=== PATIENT | female | born 1955 | race Caucasian/White ===

== ENCOUNTER 2018-04-27 13:56 | Emergency (ER) | payer OTHER ==
[2018-04-27] MEDS ORDERED: SODIUM CHLORIDE 1,000 ML IV STA ×2 (13:58)
[2018-04-27 14:04] VITALS: BP 130/83; TEMP 98.5; BMI 38.7
--- NOTE | 2018-04-27 14:06 | ED.PDOC ---
General ED Provider: Dr. BENJAMIN BROWN Chief Complaint: Stroke Stated Complaint: Abnormal speech. 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 Patient's daughter states she was driving and her mother who had been doing well since discharge from [facility] and today was acting and conversing normally suddently developed changes in her mental status, started to verbalize and speak abnormally with inappropriate response and interactions.. Family was Concerned over possible recurrent CVA. Brought her here for EMERG CARE. Patient not following commands and answers questins inappropriately. Did not have previous studies to review. New CT interpreteted at acute CVA Rt temporal lobe with hemorrhagic featured Time Seen by Physician: 13:58 Mode of Arrival: Walk-In Information Source: Family, EMT Exam Limitations: Clinical condition Nursing and Triage Documentation Reviewed and Agree: Yes Does patient meet sepsis criteria?: No System Inflammatory Response Syndrome: Not Applicable Sepsis Protocol: For patient's 13 years and over: Temp is 96.8 and below OR 101 and greater Pulse >90 BPM Resp >20/minute Acutely Altered Mental Status Are patient's symptoms suggestive of a new infection, such as: -Pneumonia -Skin, Soft Tissue -Endocarditis -UTI -Bone, Joint Infection -Implantable Device -Acute Abdominal Infection -Wound Infection -Meningitis -Blood Stream Catheter Infection -Unknown Neurological Complaint Exam - Altered Mental Status Complaint/Exam Current Mental Status: Confusion Onset: Sudden Symptoms Are: Still present Timing: Constant Episodes Lasting: Minutes Initial Severity: Severe Current Severity: Moderate Eye Deviation Present: No Character: Reports: Confusion, Responsiveness, Lethargy Aggravating: Reports: None Alleviating: Reports: None Associated Signs and Symptoms: Reports: Weakness Related History: Reports: Similar episode Cardiac Risk Factors: Reports: None CVA Risk Factors: Reports: Hypertension (CVA) Related Surgical History: Reports: None Carotid Bruit Present: No Nystagmus Present: No Gag Reflex Present: Yes Meningeal Signs Positive: No Focal Weakness: Present: RUE Focal Sensory Loss: Present: None Gait: Unable [id number]: Abnormal right Babinski Sign: Negative Right, Negative Left Heel to Toe Normal: No (not following commands/instructions) Thrombolytics Considered: No (Recent hemorrhagic infarct) Differential Diagnoses: Intracranial Bleed, Metabolic Disorder, Seizure, CVA Review of Systems - Review Of Systems Constitutional: Reports: No symptoms Eyes: Reports: No symptoms Ears, Nose, Mouth, Throat: Reports: No symptoms Respiratory: Reports: No symptoms Cardiac: Reports: No symptoms GI: Reports: No symptoms : Reports: No symptoms Musculoskeletal: Reports: No symptoms Skin: Reports: No symptoms Neurological: Reports: Cognitive dysfunction, Unable to move upper ext Endocrine: Reports: No symptoms Hematologic/Lymphatic: Reports: No symptoms All Other Systems: Reviewed and Negative Past Medical History - Past Medical History Previously Healthy: Yes Endocrine: Reports: None Cardiovascular: Reports: Hypertension Respiratory: Reports: None Hematological: Reports: None Gastrointestinal: Reports: None Genitourinary: Reports: UTI Neuro/Psych: Reports: CVA, Seizure Musculoskeletal: Reports: Arthritis (RA) Cancer: Reports: None - Surgical History General Surgical History: Reports: Unknown - Family History Family History: Reports: Unknown - Social History Lives: With family - Immunizations Influenza Vaccine within 12 Months: Yes Physical Exam - Physical Exam Appearance: Well-appearing, Ill-appearing, Obese Ill-appearing: Severe Pain Distress: None Eyes: TANESHA, EOMI, Conjunctiva clear, Conjunctiva inflammed ENT: Ears normal, Nose normal, Oropharynx normal Neck: Supple Respiratory: Airway patent, Breath sounds clear, Breath sounds equal Cardiovascular: RRR, Pulses normal, No rub GI/: Soft, Nontender, No masses, Bowel sounds normal, No Organomegaly Musculoskeletal: Normal strength, ROM intact, No edema Skin: Warm, Dry Neurological: Sensation intact, Motor intact, Cranial nerves intact, Disoriented Psychiatric: Anxious (Flat affect/inappropriate behavior and movement of her RUE / will not follow commands) Interpretation - Radiology Interpretation Radiology Interpretation By: Radiologist Radiology Results: Positive Exam Interpreted: CT Scan Xray Comments: poss rt temporal infarct and hemorrhage Re-Evaluation - Re-Evaluation Time of Re-Evaluation: 17:00 (preparing for discharge and transfer to [facility]) Status: Improved Vital Signs Stable: Yes Lungs: Clear Skin: Warm and Dry Neuro: Alert and Oriented X3 CV: RRR Critical Care Note - Critical Care Note Total Time (mins): 120 Course - Course Hematology/Chemistry: 04/27/18 14:20 04/27/18 14:20 Orders, Labs, Meds: Lab Review 04/27/18 04/27/18 04/27/18 14:20 14:20 14:20 WBC 5.84 RBC 3.50 L Hgb 10.9 L Hct 33.0 L MCV 94.3 MCH 31.1 H MCHC 33.0 RDW Coeff of Raman 14.6 Plt Count 181 Immature Gran % (Auto) 1.0 Neut % (Auto) 59.1 Lymph % (Auto) 27.2 [place] % (Auto) 8.6 Eos % (Auto) 3.1 Baso % (Auto) 1.0 Immature Gran # (Auto) 0.1 Neut # (Auto) 3.5 Lymph # (Auto) 1.6 [place] # (Auto) 0.5 Eos # (Auto) 0.2 Baso # (Auto) 0.1 PT 10.1 INR 1.01 APTT 25.2 Sodium 139 Potassium 3.9 Chloride 103 Carbon Dioxide 25 Anion Gap 14.9 BUN 8 Creatinine 0.64 Estimated GFR (MDRD) 93.00 BUN/Creatinine Ratio 12.50 Glucose 95 Calcium 8.6 Total Bilirubin 0.7 AST 20 ALT 26 Alkaline Phosphatase 83 Total Protein 6.2 Albumin 2.9 L Globulin 3.3 Albumin/Globulin Ratio 0.88 Urine Color Urine Clarity Urine pH Ur Specific [place] Urine Protein Urine Glucose (UA) Urine Ketones Urine Blood Urine Nitrite Urine Bilirubin Urine Urobilinogen Ur Leukocyte Esterase Urine Microscopic WBC Ur Squamous Epith Cells Urine Bacteria 04/27/18 14:53 WBC RBC Hgb Hct MCV MCH MCHC RDW Coeff of Raman Plt Count Immature Gran % (Auto) Neut % (Auto) Lymph % (Auto) [place] % (Auto) Eos % (Auto) Baso % (Auto) Immature Gran # (Auto) Neut # (Auto) Lymph # (Auto) [place] # (Auto) Eos # (Auto) Baso # (Auto) PT INR APTT Sodium Potassium Chloride Carbon Dioxide Anion Gap BUN Creatinine Estimated GFR (MDRD) BUN/Creatinine Ratio Glucose Calcium Total Bilirubin AST ALT Alkaline Phosphatase Total Protein Albumin Globulin Albumin/Globulin Ratio Urine Color Yellow Urine Clarity Clear Urine pH 7.0 Ur Specific [place] 1.010 Urine Protein Negative Urine Glucose (UA) Negative Urine Ketones Negative Urine Blood Negative Urine Nitrite Positive Urine Bilirubin Negative Urine Urobilinogen 0.2 Ur Leukocyte Esterase 3+ Urine Microscopic WBC 30-50 Ur Squamous Epith Cells 5-10 Urine Bacteria 3+ Orders Category Date Time Status EKG-(ED ONLY) Stat CARDIO 04/27/18 13:58 Completed ED ACCUCHECK ASSESSMENT .ONCE EMERGENCY 04/27/18 13:58 Active ED APPLY O2 .ONCE EMERGENCY 04/27/18 13:58 Active ED IV/MEDIPORT/POWERPORT .ONCE EMERGENCY 04/27/18 13:58 Active Restraints [ED RESTRAINTS] .ONCE EMERGENCY 04/27/18 17:10 Active CBC W/ AUTO DIFF Stat LAB 04/27/18 14:20 Completed COMPREHENSIVE METABOLIC PANEL Stat LAB 04/27/18 14:20 Completed PARTIAL THROMBOPLASTIN TIME Stat LAB 04/27/18 14:20 Completed PT WITH INR Stat LAB 04/27/18 14:20 Completed UA [URINALYSIS C & S IF INDICATED] Stat LAB 04/27/18 14:53 Completed URINE CULTURE Stat LAB 04/27/18 14:53 Completed 0.9 % Sodium Chloride [Saline Flush] MEDS 04/27/18 13:58 Discontinued 1 syr IVF PRN PRN Ceftriaxone Sodium [Rocephin] MEDS 04/27/18 16:16 Discontinued 1 gm IM ONCE STA Divalproex Sodium [Depakote] MEDS 04/27/18 15:21 Discontinued 500 mg .ROUTE .STK-MED ONE Fosphenytoin Sodium [Cerebyx] MEDS 04/27/18 15:44 Discontinued 1,000 mg .ROUTE .STK-MED ONE Fosphenytoin Sodium [Cerebyx] 1,000 mg MEDS 04/27/18 15:42 Discontinued 0.9 % Sodium Chloride [Sodium Chloride] 100 ml IV ONCE Fosphenytoin Sodium [Cerebyx] 1,000 mg MEDS 04/27/18 15:49 Discontinued 0.9 % Sodium Chloride [Sodium Chloride] 100 ml IV ONCE Levetiracetam Inj [Keppra] 1,000 mg MEDS 04/27/18 14:59 Discontinued 0.9 % Sodium Chloride [Sodium Chloride] 100 ml IV ONCE Lidocaine HCl/Pf [Lidocaine HCl 1% Sdv] MEDS 04/27/18 16:16 Discontinued 2.1 ml IM ONCE STA Lorazepam [Ativan] MEDS 04/27/18 15:54 Discontinued 1 mg IVP ONCE STA Lorazepam [Ativan] MEDS 04/27/18 17:02 Discontinued 1 mg IVP ONCE STA Lorazepam [Ativan] 1 ml MEDS 04/27/18 15:57 Discontinued .ROUTE .STK-MED Sodium Chloride 0.9% [Sodium Chloride] 1,000 ml MEDS 04/27/18 13:58 Discontinued IV 30 mls/hr Sodium Chloride 0.9% [Sodium Chloride] 1,000 ml MEDS 04/27/18 13:58 Discontinued IV 50 mls/hr CT HEAD W/O CONTRAST Stat RADS 04/27/18 13:58 Completed Medications Discontinued Medications Generic Name Dose Route Start Last Admin Trade Name Freq PRN Reason Stop Dose Admin Ceftriaxone Sodium 1 gm 04/27/18 16:16 04/27/18 16:24 Rocephin IM 04/27/18 16:17 1 gm ONCE STA Administration Sodium Chloride 1,000 mls @ 30 mls/hr 04/27/18 13:58 04/27/18 14:18 Sodium Chloride IV 04/28/18 23:17 30 mls/hr .[id number] STA Administration Sodium Chloride 1,000 mls @ 50 mls/hr 04/27/18 13:58 04/27/18 14:19 Sodium Chloride IV 04/28/18 09:57 Not Given .Q20H STA Levetiracetam 1,000 mg/ Sodium 110 mls @ 100 mls/hr 04/27/18 14:59 04/27/18 15:23 Chloride IV 04/27/18 16:04 Not Given ONCE STA Fosphenytoin Sodium 1,000 mg/ 120 mls @ 100 mls/hr 04/27/18 15:42 Sodium Chloride IV 04/27/18 16:53 ONCE STA Fosphenytoin Sodium 1,000 mg/ 120 mls @ 240 mls/hr 04/27/18 15:49 04/27/18 15 :56 Sodium Chloride IV 04/27/18 16:18 240 mls/hr ONCE STA Administration Lidocaine HCl 2.1 ml 04/27/18 16:16 04/27/18 16:32 Lidocaine Hcl 1% Sdv IM 04/27/18 16:17 2.1 ml ONCE STA Administration Lorazepam 1 mg 04/27/18 15:54 04/27/18 15:58 Ativan IVP 04/27/18 15:55 1 mg ONCE STA Administration Lorazepam 1 mg 04/27/18 17:02 04/27/18 17:04 Ativan IVP 04/27/18 17:03 1 mg ONCE STA Administration Sodium Chloride 1 syr 04/27/18 13:58 04/27/18 14:19 Saline Flush IVF 1 syr PRN PRN Administration To flush IV Vital Signs: Temp Pulse Resp BP Pulse Ox 04/27/18 13:57 98.5 F 77 20 130/83 98 Departure - Departure Time of Disposition: 17:20 Disposition: TSF SHORT-TRM HOSP Discharge Problem: Seizure, History of CVA (cerebrovascular accident) Discharge Problem: (Ruled Out): Seizure activity as manifestation of blood transfusion reaction Condition: Fair Pt referred to PMD for follow-up: Yes (PCP and neurologist) IPMP verified?: No Additional Instructions: Patient discharged and transferred to [facility] dept Neurology Allergies/Adverse Reactions: Allergies acetaminophen [From Fioricet] Adverse Reaction (Verified 04/27/18 14:03) butalbital [From Fioricet] Adverse Reaction (Verified 04/27/18 14:03) caffeine [From Fioricet] Adverse Reaction (Verified 04/27/18 14:03) Sulfa (Sulfonamide Antibiotics) Adverse Reaction (Verified 04/27/18 14:03) Transfer Form Completed: Yes Disposition Discussed With: Patient, Family Additional Comments Additional Comments: STAT CT scan obtained -Radiology reported acute/subacute infarct/hemorrhagic signs Rt Temporal lobe/Informed family; State unaware of involvement before.No previous films here. Daughter has copies of prev CT scans at home and went home to obtain.Films Pushed to [facility]. Contacted [facility] Neurosurgery the Neurology-spoke to pts attending neurologist who reviewed images. Actually current films reveal previous Temporal Lobe infarct has regressed in size-states does not appear new CVA exists. Suspects current symptoms most likely related to temporal lobe activity seizure. Suspects current seizure med subtherapeutic. Unable to administer additional med- specific med unavailable in hospital and patient does not have home meds. Recommend 2 gm loading dose Keppra but her daughter advised she experienced adverse effect to Keppra previoulsy therefore provided loading dose Cerebryx. Arrangements of transfer complicated by weather-unable to fly and ambulances busy-arranged for ground transfer. Patient then became verbally agressive and inappropriate. Dosed with Lorazepam (see orders). Discussed transport orders with paramedics. Patient stable upon discharge. 60 -90 minutes post departure , paramedics contacted hospital, pt had become agressive and appropriate again despite additional Lorazepam. Was attempting to climb off stretcher and get out of ambulance. Advised to administer Morphine 4 mg IVP and 5 mg Diazepam prn. Stat
--- NOTE | 2018-04-27 14:28 | CT ---
EXAM: CT of the head without contrast History: Altered mental status. Comparison: None available. Technique: Multiplanar CT images through the head were obtained without the administration of IV con trast Findings: The visualized paranasal sinuses and mastoid air cells are clear in general. No acute gurinder varial abnormalities. Intracranially the ventricular and cisternal spaces are normal in size, shape and configuration of th is age. No midline shift and no hydrocephalus. 6.2 cm x 3.0 cm area of cytotoxic edema within the r ight temporal lobe with subtle areas of internal hyperdensity. 1.3 cm low density area within the rig ht cerebellum. Impression: 1. Acute appearing infarction within the right temporal lobe with suggestion of hemorrhagic transform ation. 2. Small hypodensity within the right cerebellum, concerning for small infarction. Critical results communicated to Dr. Lopez 2:22 p.m. 04/27/2018
[2018-04-27] MEDS ORDERED: KEPPRA 1,000 MG in SODIUM CHLORIDE 100 ML IV STA (14:59)
[2018-04-27] MEDS ORDERED: DEPAKOTE ONE (15:21)
[2018-04-27] MEDS ORDERED: CEREBYX 1,000 MG in SODIUM CHLORIDE 100 ML IV STA ×2 (15:42→15:49)
[2018-04-27] MEDS ORDERED: CEREBYX ONE (15:44)
[2018-04-27] MEDS ORDERED: ATIVAN IVP STA ×2 (15:54→17:02)
[2018-04-27] MEDS ORDERED: LORAZEPAM ONE (15:57)
[2018-04-27] MEDS ORDERED: ROCEPHIN 1 GM in SODIUM CHLORIDE 50 ML IV STA (16:12)
[2018-04-27] MEDS ORDERED: ROCEPHIN IM STA (16:16)
[2018-04-27] MEDS ORDERED: LIDOCAINE HCL 1% SDV IM STA (16:16)
== END 2018-04-27 18:10 | disposition short-term general hospital (02) ==
LOC: ED 13:56
DX: R56.9 Unspecified convulsions (principal); I63.9 Cerebral infarction, unspecified; I10 Essential (primary) hypertension; R41.82 Altered mental status, unspecified; R47.9 Unspecified speech disturbances
CPT/HCPCS: 36415; 80053; 81001; 82962; 85025; 85610; 85730; 87086; 87186; 93005; 93010; 96365; 96372; 96375; 96376; 99285

== ENCOUNTER 2018-05-30 10:34 | Emergency (ER) | payer OTHER ==
[2018-05-30 10:45] VITALS: TEMP 99.8
[2018-05-30 10:56] VITALS: BMI 38.4
--- NOTE | 2018-05-30 11:46 | ED.PDOC ---
General ED Provider: Dr. BENJAMIN BROWN Chief Complaint: Hypertension Stated Complaint: Hypertension and Headache. Family states have monitored her BP all night which has been fluctuant.Demonstrate readings of BP with wide fluctuations. No other symptoms. Time Seen by Physician: 10:50 Mode of Arrival: Wheelchair Information Source: Patient, Family Exam Limitations: No limitations Primary Care Provider: DENZEL DAUGHERTY Nursing and Triage Documentation Reviewed and Agree: Yes Does patient meet sepsis criteria?: No System Inflammatory Response Syndrome: Not Applicable Sepsis Protocol: For patient's 13 years and over: Temp is 96.8 and below OR 101 and greater Pulse >90 BPM Resp >20/minute Acutely Altered Mental Status Are patient's symptoms suggestive of a new infection, such as: -Pneumonia -Skin, Soft Tissue -Endocarditis -UTI -Bone, Joint Infection -Implantable Device -Acute Abdominal Infection -Wound Infection -Meningitis -Blood Stream Catheter Infection -Unknown Cardiovascular Complaint Exam - Hypertension Complaint/Exam Onset/Duration: 12 hrs Symptoms Are: Still present Timing: Constant Reported B/P Prior to Arrival: 166/78 Aggravating: Reports: None Alleviating: Reports: Rest Associated Signs and Symptoms: Denies: Chest pain, Vision changes, Anxiety, Recent stress, Headache, Numbness, Tingling, Weakness, Dizziness, Short of air, Swelling Related History: Reports: Current Edxter Inhibitors, Current Beta Romulo, Current Diuretic, Other (clonidine) Related Surgical History: Reports: None Cardiac Risk Factors: Reports: Hypertension, Elevated lipids Recent Change in Medications: Yes A/V [place]: No Papilledema Present: No JVD Present: No Carotid Bruit Present: No Femoral Pulses Bounding: No Differential Diagnoses: Hypertension, Other (anxiety) Review of Systems - Review Of Systems Constitutional: Reports: No symptoms Eyes: Reports: No symptoms Ears, Nose, Mouth, Throat: Reports: No symptoms, Throat pain Respiratory: Reports: No symptoms Cardiac: Reports: No symptoms GI: Reports: No symptoms : Reports: No symptoms Musculoskeletal: Reports: No symptoms Skin: Reports: No symptoms Neurological: Reports: No symptoms Endocrine: Reports: No symptoms Hematologic/Lymphatic: Reports: No symptoms All Other Systems: Reviewed and Negative Past Medical History - Past Medical History Previously Healthy: Yes Endocrine: Reports: None Cardiovascular: Reports: Hypertension Respiratory: Reports: None Hematological: Reports: None Gastrointestinal: Reports: None Genitourinary: Reports: UTI Neuro/Psych: Reports: CVA, Seizure Musculoskeletal: Reports: Arthritis (RA) Cancer: Reports: None Last Menstrual Period: N/A - Surgical History General Surgical History: Reports: Unknown - Family History Family History: Reports: Unknown - Social History Smoking Status: Never smoker Hx Substance Use: No Alcohol Screening: None - Immunizations Influenza Vaccine within 12 Months: Yes Physical Exam - Physical Exam Appearance: Well-appearing, No pain distress, Well-nourished, Obese Ill-appearing: None Pain Distress: None Eyes: TANESHA, EOMI, Conjunctiva clear ENT: Ears normal, Nose normal, Oropharynx normal, Dry mucosa (thrush) Respiratory: Airway patent, Breath sounds clear, Breath sounds equal, Respirations nonlabored Cardiovascular: RRR GI/: Soft, Nontender, No masses, Bowel sounds normal, No Organomegaly Musculoskeletal: Normal strength, ROM intact, No edema, No calf tenderness Skin: Warm, Dry, Normal color Neurological: Sensation intact, Motor intact, Reflexes intact, Cranial nerves intact, Alert, Oriented Psychiatric: Affect appropriate, Mood appropriate Re-Evaluation - Re-Evaluation Time of Re-Evaluation: 15:30 Status: Improved Vital Signs Stable: Yes (BP 144/77- has remained stable since hydralazine administered) Appearance: NAD Lungs: Clear Skin: Warm and Dry Neuro: Alert and Oriented X3 CV: RRR Critical Care Note - Critical Care Note Total Time (mins): 60 Course - Course Hematology/Chemistry: 05/30/18 12:03 05/30/18 12:03 Orders, Labs, Meds: Lab Review 05/30/18 05/30/18 05/30/18 12:03 12:03 12:09 WBC 5.92 RBC 3.26 L Hgb 10.0 L Hct 29.1 L MCV 89.3 MCH 30.7 MCHC 34.4 RDW Coeff of Raman 14.4 Plt Count 141 Immature Gran % (Auto) 0.7 Neut % (Auto) 48.6 Lymph % (Auto) 40.0 [place] % (Auto) 6.4 Eos % (Auto) 3.5 Baso % (Auto) 0.8 Immature Gran # (Auto) 0.0 Neut # (Auto) 2.9 Lymph # (Auto) 2.4 [place] # (Auto) 0.4 Eos # (Auto) 0.2 Baso # (Auto) 0.1 Sodium 141 Potassium 3.8 Chloride 104 Carbon Dioxide 27 Anion Gap 13.8 BUN 10 Creatinine 0.72 Estimated GFR (MDRD) 81.00 BUN/Creatinine Ratio 13.88 Glucose 145 H Calcium 8.8 Total Bilirubin 0.6 AST 12 L ALT 15 Alkaline Phosphatase 65 Total Protein 6.1 Albumin 3.1 L Globulin 3.0 Albumin/Globulin Ratio 1.03 Urine Color Yellow Urine Clarity Clear Urine pH 6.5 Ur Specific [place] 1.010 Urine Protein Negative Urine Glucose (UA) Negative Urine Ketones Negative Urine Blood Negative Urine Nitrite Negative Urine Bilirubin Negative Urine Urobilinogen 0.2 Ur Leukocyte Esterase Negative Orders Category Date Time Status EKG-(ED ONLY) Stat CARDIO 05/30/18 12:04 Completed CBC W/ AUTO DIFF Stat LAB 05/30/18 12:03 Completed CMP [COMPREHENSIVE METABOLIC PANEL] Stat LAB 05/30/18 12:03 Completed UA [URINALYSIS C & S IF INDICATED] Stat LAB 05/30/18 12:09 Completed Hydralazine HCl [Apresoline] MEDS 05/30/18 13:35 Discontinued 25 mg PO ONCE STA Hydralazine HCl [Apresoline] MEDS 05/30/18 15:49 Discontinued 25 mg PO ONCE STA Propranolol HCl [Inderal] MEDS 05/30/18 15:50 Discontinued 20 mg PO ONCE STA CHEST, 1V AP ONLY Stat RADS 05/30/18 12:05 Completed Medications Discontinued Medications Generic Name Dose Route Start Last Admin Trade Name Freq PRN Reason Stop Dose Admin Hydralazine HCl 25 mg 05/30/18 13:35 05/30/18 13:57 Apresoline PO 05/30/18 13:36 25 mg ONCE STA Administration Hydralazine HCl 25 mg 05/30/18 15:49 Apresoline PO 05/30/18 15:50 ONCE STA Propranolol HCl 20 mg 05/30/18 15:50 Inderal PO 05/30/18 15:51 ONCE STA Vital Signs: Temp Pulse Resp BP Pulse Ox 05/30/18 15:52 118/70 05/30/18 15:30 149/96 H 05/30/18 15:15 144/77 H 05/30/18 15:00 147/79 H 05/30/18 14:45 148/81 H 05/30/18 14:30 156/81 H 05/30/18 14:15 143/87 H 05/30/18 14:07 154/81 H 05/30/18 14:00 158/85 H 05/30/18 13:45 156/101 H 05/30/18 13:32 158/86 H 05/30/18 13:30 162/99 H 05/30/18 13:20 68 18 171/86 H 95 05/30/18 10:38 99.8 F H 60 17 129/84 94 L HÉCTOR Risk Score HÉCTOR Risk Score: Risk Score Odds of by 30D 0 0.1 (0.1-0.2) 1 0.3 (0.2-0.3) 2 0.4 (0.3-0.5) 3 0.7 (0.6-0.9) 4 1.2 (1.0-1.5) 5 2.2 (1.9-2.6) 6 3.0 (2.5-3.6) 7 4.8 (3.8-6.1) Departure - Departure Time of Disposition: 16:45 Disposition: HOME SELF-CARE Discharge Problem: Hypertension, Thrush, oral Discharge Problem: (Ruled Out): Tongue thrust Instructions: Hypertension (ED), Oral Candidiasis (ED) Condition: Good Pt referred to PMD for follow-up: Yes (1 week) IPMP verified?: No Additional Instructions: Monitor BP three -four times daily and prn if persistent >130/85-90 Use meds as directed May increase Altace 5 mg twice daily for improved control Use CLonidine as directed Discuss case with PCP for additional instructions Allergies/Adverse Reactions: Allergies acetaminophen [From Fioricet] Adverse Reaction (Verified 05/30/18 10:38) butalbital [From Fioricet] Adverse Reaction (Verified 05/30/18 10:38) caffeine [From Fioricet] Adverse Reaction (Verified 05/30/18 10:38) Sulfa (Sulfonamide Antibiotics) Adverse Reaction (Verified 05/30/18 10:38) Home Medications: Ambulatory Orders Cetirizine HCl 10 mg PO DAILY PRN 05/30/18 Citalopram Hydrobromide [Citalopram HBr] 40 mg PO DAILY 05/30/18 Clonidine HCl 0.1 mg PO Q8HR PRN 05/30/18 Diclofenac Sodium 75 mg PO BID 05/30/18 Esomeprazole Magnesium 40 mg PO DAILY 05/30/18 Folic Acid 1 mg PO DAILY 05/30/18 Gabapentin 200 mg PO BID 05/30/18 Hydrocodone/Acetaminophen [Davis 7.5-325 Tablet] 1 tab PO Q4HR PRN 05/30/18 Lacosamide [Vimpat] 100 mg PO BID 05/30/18 Levothyroxine Sodium 125 mcg PO DAILY 05/30/18 Liothyronine Sodium 10 mcg PO DAILY 05/30/18 Lorazepam 0.5 mg PO DAILY PRN 05/30/18 Metformin HCl 1,000 mg PO TID 05/30/18 Methotrexate Sodium [Methotrexate] 7.5 mg PO 2 TIMES PER WEEK 05/30/18 Nystatin [Nystatin Oral Susp] 5 ml PO ACHS #5 oz 05/30/18 Prednisone 5 mg PO DAILY 05/30/18 Promethazine HCl 25 mg PO Q4-6H PRN 05/30/18 Propranolol HCl 20 mg PO BID 05/30/18 Ramipril 5 mg PO DAILY 05/30/18 Ramipril [Altace] 10 mg PO BEDTIME PRN 05/30/18 Disposition Discussed With: Patient, Family
--- NOTE | 2018-05-30 12:39 | DI ---
EXAM: Single view of the chest. History: Elevated blood pressure Findings: Heart size is within normal limits. No focal consolidation. No appreciable pleural fluid and no pneumothorax. No acute osseous abnormalities. Degenerative changes of the bilateral glenohu meral joints. Impression: No acute cardiopulmonary process.
[2018-05-30] MEDS ORDERED: APRESOLINE PO STA ×2 (13:35→15:49)
[2018-05-30] MEDS ORDERED: INDERAL PO STA (15:50)
[2018-05-30 15:53] VITALS: BP 118/70
== END 2018-05-30 16:25 | disposition home or self-care (01) ==
LOC: ED 10:34
DX: I10 Essential (primary) hypertension (principal); B37.0 Candidal stomatitis; R51 Headache; E78.5 Hyperlipidemia, unspecified; Z86.73 Personal history of transient ischemic attack (TIA), and cerebral infarction without residual deficits; Z79.899 Other long term (current) drug therapy
CPT/HCPCS: 36415; 80053; 81001; 85025; 93005; 93010; 99283

== ENCOUNTER 2018-06-05 00:58 | Outpatient (CLI) | payer OTHER | END 2018-06-05 01:18 | disposition short-term general hospital (02) | LOC: AMBL 00:58 | PROVIDERS: ATTEND Family Medicine | DX: R56.9 Unspecified convulsions (principal); R41.82 Altered mental status, unspecified; I63.9 Cerebral infarction, unspecified ==

== ENCOUNTER 2018-08-01 01:21 | Emergency (ER) | payer OTHER ==
[2018-08-01 01:41] VITALS: BP 132/86; TEMP 99.4; BMI 34.7
[2018-08-01] MEDS ORDERED: NEURONTIN PO STA (01:55)
[2018-08-01] MEDS ORDERED: TORADOL IM STA (01:55)
--- NOTE | 2018-08-01 02:42 | CT ---
EXAM: CT head without contrast. HISTORY: Headache. PROCEDURE: Contiguous axial CT images of the head without contrast with coronal and sagittal reforma ts. FINDINGS: Comparison made with CT of 04/27/[address] head of 05/13/2018. There is mild diffuse cer ebral atrophy. The basal cisterns are normal in size and configuration. No evidence of mass or midl ine shift. No intracranial hemorrhage or evidence of new large vessel infarct. Redemonstrated is de creased attenuation in the right temporal lobe consistent with a chronic infarct with mild ex vacuo o f the right temporal horn. There are minimal chronic small vessel ischemic changes in the white matte r. No extra-axial fluid collection. The paranasal sinuses and mastoid air cells are well-aerated and normal in appearance. Impression: No intracranial hemorrhage or evidence of new large vessel infarct. Old right temporal infarct as described. Minimal chronic small vessel ischemic changes. Diffuse cerebral atrophy.
--- NOTE | 2018-08-01 02:46 | CT ---
EXAM: CT maxillofacial without contrast. HISTORY: Headache with left TMJ point pain. PROCEDURE: Contiguous axial CT images of the face and orbits without contrast with coronal and sagit jarrell reformats. FINDINGS: The bones are intact with no evidence of fracture. The temporomandibular joints are mainta ined. The paranasal sinuses and mastoid air cells are normal in appearance. The orbits are normal i n appearance. Impression: Negative CT of the face and orbits.
--- NOTE | 2018-08-01 03:36 | ED.PDOC ---
General ED Provider: Dr. BENJAMIN BASS-ER Chief Complaint: Non-specific Complaint Stated Complaint: my mouth and jaw hurts Time Seen by Physician: 01:25 Mode of Arrival: Walk-In Information Source: Patient Exam Limitations: No limitations Primary Care Provider: DENZEL DAUGHERTY Nursing and Triage Documentation Reviewed and Agree: Yes Does patient meet sepsis criteria?: No System Inflammatory Response Syndrome: Not Applicable Sepsis Protocol: For patient's 13 years and over: Temp is 96.8 and below OR 101 and greater Pulse >90 BPM Resp >20/minute Acutely Altered Mental Status Are patient's symptoms suggestive of a new infection, such as: -Pneumonia -Skin, Soft Tissue -Endocarditis -UTI -Bone, Joint Infection -Implantable Device -Acute Abdominal Infection -Wound Infection -Meningitis -Blood Stream Catheter Infection -Unknown Neurological Complaint Exam - Neurological Deficit Complaint/Exam Patient Complains of: Reports: Abnormal sensation Symptom Onset Unknown: Yes Onset: Gradual Symptoms Are: Still present Location: Reports: Facial Character: Reports: Numbness, Tingling, Paresthesia. Denies: Motor weakness, Paralysis, Sensory loss, Impaired speech Alleviating: Reports: None Associated Signs and Symptoms: Denies: Confusion, Agitation, Responsiveness, LOC , Headache, Fever, Nuchal rigidity, Recent trauma, Remote trauma, Recent illness Meningeal Signs Positive: No Focal Weakness: Present: None Focal Sensory Loss: Present: None Gait: Normal Nystagmus Present: No Gag Reflex Present: Yes [id number]: Normal Findings Signs of Trauma: No Differential Diagnoses: Other Quality Indicator For Non-Traumatic Chest Pain/Syncope: EKG Performed Review of Systems - Review Of Systems Constitutional: Reports: No symptoms Eyes: Reports: No symptoms Ears, Nose, Mouth, Throat: Reports: Mouth pain Respiratory: Reports: No symptoms Cardiac: Reports: No symptoms GI: Reports: No symptoms : Reports: No symptoms Musculoskeletal: Reports: No symptoms Skin: Reports: No symptoms Neurological: Reports: No symptoms Endocrine: Reports: No symptoms Hematologic/Lymphatic: Reports: No symptoms All Other Systems: Reviewed and Negative Past Medical History - Past Medical History Previously Healthy: Yes Endocrine: Reports: None Cardiovascular: Reports: Hypertension Respiratory: Reports: None Hematological: Reports: None Gastrointestinal: Reports: None Genitourinary: Reports: UTI Neuro/Psych: Reports: CVA, Seizure Musculoskeletal: Reports: Arthritis (RA) Cancer: Reports: None Last Menstrual Period: menopausal at 52 y/o - Surgical History General Surgical History: Reports: Unknown - Family History Family History: Reports: Unknown - Social History Smoking Status: Never smoker Hx Substance Use: No Alcohol Screening: None - Immunizations Tetanus Shot up to Date: Yes Influenza Vaccine within 12 Months: Yes Physical Exam - Physical Exam Appearance: Well-appearing, No pain distress, Well-nourished Pain Distress: Mild Eyes: TANESHA, EOMI, Conjunctiva clear ENT: Ears normal, Nose normal, Oropharynx normal Neck: Supple Respiratory: Airway patent Cardiovascular: RRR GI/: Soft, Nontender, No masses, Bowel sounds normal, No Organomegaly Musculoskeletal: Normal strength, ROM intact, No edema, No calf tenderness Skin: Warm Neurological: Sensation intact, Motor intact, Reflexes intact, Cranial nerves intact, Alert, Oriented Psychiatric: Affect appropriate, Mood appropriate Interpretation - Radiology Interpretation Radiology Interpretation By: Radiologist Radiology Results: Negative Exam Interpreted: CT Scan - EKG Interpretation Time of EKG #1: 03:36 Rate: Normal Rhythm: Sinus Ectopy: None Artie: NL ST Segment: Normal Interpretation: nsr Re-Evaluation - Re-Evaluation Time of Re-Evaluation: 03:36 Status: Improved Vital Signs Stable: Yes Pain Level: 2 Appearance: NAD Lungs: Clear Skin: Warm and Dry Neuro: Alert and Oriented X3 CV: RRR Critical Care Note - Critical Care Note Total Time (mins): 0 Course - Course Hematology/Chemistry: 08/01/18 02:00 08/01/18 02:00 Orders, Labs, Meds: Lab Review 08/01/18 08/01/18 08/01/18 02:00 02:00 02:00 WBC 9.97 RBC 4.38 Hgb 12.4 Hct 37.6 MCV 85.8 MCH 28.3 MCHC 33.0 RDW Coeff of Raman 14.1 Plt Count 163 Immature Gran % (Auto) 0.3 Neut % (Auto) 61.1 Lymph % (Auto) 22.1 [place] % (Auto) 8.6 Eos % (Auto) 7.1 H Baso % (Auto) 0.8 Immature Gran # (Auto) 0.0 Neut # (Auto) 6.1 Lymph # (Auto) 2.2 [place] # (Auto) 0.9 Eos # (Auto) 0.7 Baso # (Auto) 0.1 ESR 17 Sodium 139.5 Potassium 4.19 Chloride 102.8 Carbon Dioxide 28.0 Anion Gap 12.89 BUN 11.9 Creatinine 0.84 Estimated GFR (MDRD) 68.00 BUN/Creatinine Ratio 14.16 Glucose 98.1 Calcium 9.43 Total Bilirubin 0.77 AST 22.0 ALT 24.3 Alkaline Phosphatase 115.7 Total Creatine Kinase 25.1 L Troponin I < 0.012 Total Protein 7.53 Albumin 4.27 Globulin 3.26 Albumin/Globulin Ratio 1.30 Vitamin B12 761 Orders Category Date Time Status EKG-(ED ONLY) Stat CARDIO 08/01/18 01:52 Completed CBC W/ AUTO DIFF Stat LAB 08/01/18 02:00 Completed COMPREHENSIVE METABOLIC PANEL Stat LAB 08/01/18 02:00 Completed CREATINE KINASE Stat LAB 08/01/18 02:00 Completed ESR Stat LAB 08/01/18 02:00 Completed TROPONIN I Stat LAB 08/01/18 02:00 Completed VITAMIN B12 Stat LAB 08/01/18 02:00 Completed Gabapentin [Neurontin] MEDS 08/01/18 01:55 Discontinued 100 mg PO ONCE STA Ketorolac Tromethamine [Toradol] MEDS 08/01/18 01:55 Discontinued 60 mg IM ONCE STA CT HEAD W/O CONTRAST Stat RADS 08/01/18 01:[address] MAXILLOFACIAL W/O CONTRAST Stat RADS 08/01/18 01:53 Completed Medications Discontinued Medications Generic Name Dose Route Start Last Admin Trade Name Freq PRN Reason Stop Dose Admin Gabapentin 100 mg 08/01/18 01:55 08/01/18 02:27 Neurontin PO 08/01/18 01:56 100 mg ONCE STA Administration Ketorolac Tromethamine 60 mg 08/01/18 01:55 08/01/18 02:08 Toradol IM 08/01/18 01:56 60 mg ONCE STA Administration Vital Signs: Temp Pulse Resp BP Pulse Ox 08/01/18 01:22 99.4 F 86 20 132/86 96 Departure - Departure Time of Disposition: 03:36 Disposition: HOME SELF-CARE Discharge Problem: Neuralgia Instructions: Trigeminal Neuralgia (ED) Condition: Good Pt referred to PMD for follow-up: Yes IPMP verified?: No Additional Instructions: increase neurontin to 300mg tid --f/u with luis a daugherty and consider mri and neurology referral Allergies/Adverse Reactions: Allergies acetaminophen [From Fioricet] Adverse Reaction (Verified 08/01/18 03:01) butalbital [From Fioricet] Adverse Reaction (Verified 08/01/18 03:01) caffeine [From Fioricet] Adverse Reaction (Verified 08/01/18 03:01) ibuprofen Adverse Reaction (Verified 08/01/18 03:02) States, "unable to take it since I had the head bleed". Sulfa (Sulfonamide Antibiotics) Adverse Reaction (Verified 08/01/18 03:01) Home Medications: Ambulatory Orders Citalopram Hydrobromide [Citalopram HBr] 40 mg PO DAILY 05/30/18 Diclofenac Sodium 75 mg PO DAILY 05/30/18 Esomeprazole Magnesium 40 mg PO DAILY 05/30/18 Folic Acid 1 mg PO DAILY 05/30/18 Gabapentin 200 mg PO BID 05/30/18 Lacosamide [Vimpat] 150 mg PO BID 05/30/18 Levothyroxine Sodium 125 mcg PO DAILY 05/30/18 Liothyronine Sodium 10 mcg PO DAILY 05/30/18 Lorazepam 0.5 mg PO BEDTIME 05/30/18 Metformin HCl 1,000 mg PO BID 05/30/18 Prednisone 5 mg PO DAILY 05/30/18 Promethazine HCl 25 mg PO Q4-6H PRN 05/30/18 Propranolol HCl 20 mg PO BID 05/30/18 Ramipril 5 mg PO BID 05/30/18 Fluticasone Propionate [Flonase] 2 spray NS DAILY 08/01/18 Hydralazine HCl 25 mg PO BID PRN 08/01/18 Lorazepam 0.5 mg PO BID PRN 08/01/18 Magnesium Oxide [Mag-Ox] 800 mg PO BID 08/01/18 Montelukast Sodium [Singulair] 10 mg PO DAILY 08/01/18 Disposition Discussed With: Patient, Family
== END 2018-08-01 03:50 | disposition home or self-care (01) ==
LOC: ED 01:21
DX: G50.0 Trigeminal neuralgia (principal)
CPT/HCPCS: 36415; 80053; 82550; 82607; 84484; 85025; 85651; 93005; 93010; 96372; 99283

== ENCOUNTER 2019-06-15 19:07 | Outpatient (CLI) | END 2019-06-15 19:34 | disposition short-term general hospital (02) | LOC: AMBL 19:07 | PROVIDERS: ATTEND Family Medicine | DX: S99.911A Unspecified injury of right ankle, initial encounter (principal); W19.XXXA Unspecified fall, initial encounter; R29.6 Repeated falls; R26.81 Unsteadiness on feet; M79.89 Other specified soft tissue disorders; Z86.73 Personal history of transient ischemic attack (TIA), and cerebral infarction without residual deficits ==